=== PATIENT | female | born 1945 | race Caucasian/White ===

== ENCOUNTER 2017-05-20 23:34 | Emergency (ER) | payer MEDICARE, OTHER ==
[~2017-05-20] VITALS: Ht 154.9 cm; Wt 59.0 kg
[~2017-05-20 23:34] MED LIST: AMIT10 PO; AMITIZA SC; Amitiza24 MCG SC; CELE100; CETI5 PO; CITA20 PO; CYCL10 PO; DIAZ5 PO; ESZO2 PO; Effexor Xr150 MG PO; Enablex15 MG PO; FLUSAL5005 INH; FOLI1 PO; FURO40 PO; Flonase 0.05% N16 GM; HYDACE10B PO; HYDR1TAB94 PO; LEFL20 PO; LEVSOD100 PO; LIDO5TP TOP; LORA.5 PO; META800 PO; METANX CAPSULE1 EACH PO; METH10 PO; METH5; MONT10T PO; MULVITA; Medi-Meclizine25 MG PO; Norco 5-325 Ta1 EACH PO; OXYACE5T PO; POTCHL20ER PO; PREDNISONE; PROACE100
[2017-05-21 00:25] LABS: BASOPHILS ABSOLUTE AUTO 0.05 K/mm3 (0.00-0.23); BASOPHILS PERCENT AUTO 1 % (0-2); EOSINOPHILS ABSOLUTE AUTO 0.16 K/mm3 (0.00-0.68); EOSINOPHILS PERCENT AUTO 2 % (0-6); Hematocrit 40.5 % (33.0-51.0); Hemoglobin 13.2 g/dL (11.5-16.0); IMMATURE GRAN ABSOLUTE AUTO 0.01 K/mm3 (0.00-0.10); IMMATURE GRAN PERCENT AUTO 0 % (0-1); LYMPHOCYTES ABSOLUTE AUTO 2.06 K/mm3 (0.84-5.20); LYMPHOCYTES PERCENT AUTO 29 % (21-46); MONOCYTES PERCENT AUTO 8 % (4-13); Mean Corpuscular HGB 31.2 pg (26.0-34.0); Mean Corpuscular HGB Conc 32.6 g/dL (31.5-36.5); Mean Corpuscular Volume 96 fL (80-100); Mean Platelet Volume 9.6 fL (9.1-12.4); NEUTROPHILS ABSOLUTE AUTO 4.28 K/mm3 (1.96-9.15); NEUTROPHILS PERCENT AUTO 60 % (41-73); Platelet Count 166 K/mm3 (150-400); RDW Coefficient Variation 12.3 % (11.7-14.2); RDW Standard Deviation 42.7 fL (35.1-46.3); Red Blood Cell Count 4.23 M/mm3 (3.80-5.20); White Blood Cell Count 7.16 K/mm3 (4.00-11.30)
[2017-05-21 00:45] LABS: Alanine Aminotransfer (ALT/SGP 32 U/L (12-78); Albumin, Blood 4.1 g/dL (3.4-5.0); Albumin/Globulin Ratio 1.3 (0.8-1.8); Alk Phos 77 U/L (50-136); Anion Gap 7 mmol/L (6-16); Aspartate Aminotrans (AST/SGOT 29 U/L (12-37); Bilirubin, Total 0.3 mg/dL (0.1-1.0); Blood Urea Nitrogen 16 mg/dL (8-24); Bun/Creatinine Ratio 21.5 (12.0-20.0); CO2, Blood 25 mmol/L (21-32); Calcium, Blood 8.5 mg/dL (8.5-10.1); Chloride, Blood 101 mmol/L (98-108); Creatinine, Blood 0.74 mg/dL (0.40-1.00); Globulin, Blood 3.1 g/dL (2.2-4.0); Glomerular Filtration Rate >60 (60-); Glucose, Blood 92 mg/dL (70-99); Potassium, Blood 3.8 mmol/L (3.5-5.5); Sodium, Blood 133 mmol/L (136-145); Total Protein, Blood 7.2 g/dL (6.4-8.2)
[2017-11-13] MEDS ORDERED: Keflex500 MG PO (19:20)
[2017-11-13] MEDS ORDERED: Percocet 5-3251 EACH PO (19:20)
[2017-11-13] MEDS ORDERED: Roxicodone5 MG PO (19:31)
== END 2017-05-21 03:55 | disposition home or self-care (01) ==
LOC: ER 23:34
PROVIDERS: Emergency Medicine
DX: S42.034A Nondisplaced fracture of lateral end of right clavicle, initial encounter for closed fracture (principal); S70.01XA Contusion of right hip, initial encounter; Z88.5 Allergy status to narcotic agent; Z88.1 Allergy status to other antibiotic agents; Z88.8 Allergy status to other drugs, medicaments and biological substances; Z79.899 Other long term (current) drug therapy; Z79.52 Long term (current) use of systemic steroids; W18.09XA Striking against other object with subsequent fall, initial encounter
CPT/HCPCS: 36415; 71045; 72192; 73030; 73502; 80053; 85025; 93005; 93010; 96374; 96375; 96376; 99284; J1170; J2405

== ENCOUNTER 2018-10-28 23:11 | Observation (INO) | payer MEDICARE, OTHER ==
[~2018-10-28] VITALS: Ht 157.5 cm; Wt 62.2 kg
[~2018-10-28 23:11] MED LIST changes: +Keflex500 MG PO; +Percocet 5-3251 EACH PO; +Roxicodone5 MG PO
[2018-10-29 00:41] LABS: BASOPHILS ABSOLUTE AUTO 0.06 K/mm3 (0.00-0.23); BASOPHILS PERCENT AUTO 1 % (0-2); EOSINOPHILS ABSOLUTE AUTO 0.08 K/mm3 (0.00-0.68); EOSINOPHILS PERCENT AUTO 2 % (0-6); Hematocrit 37.8 % (33.0-51.0); Hemoglobin 12.3 g/dL (11.5-16.0); IMMATURE GRAN ABSOLUTE AUTO 0.01 K/mm3 (0.00-0.10); IMMATURE GRAN PERCENT AUTO 0 % (0-1); LYMPHOCYTES ABSOLUTE AUTO 1.93 K/mm3 (0.84-5.20); LYMPHOCYTES PERCENT AUTO 36 % (21-46); MONOCYTES PERCENT AUTO 13 % (4-13); Mean Corpuscular HGB 28.7 pg (26.0-34.0); Mean Corpuscular HGB Conc 32.5 g/dL (31.5-36.5); Mean Corpuscular Volume 88 fL (80-100); Mean Platelet Volume 10.5 fL (9.1-12.4); NEUTROPHILS ABSOLUTE AUTO 2.61 K/mm3 (1.96-9.15); NEUTROPHILS PERCENT AUTO 48 % (41-73); Platelet Count 187 K/mm3 (150-400); RDW Coefficient Variation 13.2 % (11.7-14.2); RDW Standard Deviation 42.6 fL (35.1-46.3); Red Blood Cell Count 4.28 M/mm3 (3.80-5.20); White Blood Cell Count 5.39 K/mm3 (4.00-11.30)
[2018-10-29 01:04] LABS: Alanine Aminotransfer (ALT/SGP 31 U/L (12-78); Albumin/Globulin Ratio 1.5 (0.8-1.8); Alk Phos 74 U/L (50-136); Anion Gap 12 mmol/L (6-16); Aspartate Aminotrans (AST/SGOT 44 U/L (12-37); Bilirubin, Total 0.4 mg/dL (0.1-1.0); Blood Urea Nitrogen 15 mg/dL (8-24); CO2, Blood 25 mmol/L (21-32); Calcium, Blood 8.4 mg/dL (8.5-10.1); Chloride, Blood 98 mmol/L (98-108); Creatinine, Blood 0.75 mg/dL (0.40-1.00); Globulin, Blood 2.6 g/dL (2.2-4.0); Glomerular Filtration Rate >60 (60-); Glucose, Blood 103 mg/dL (70-99); Sodium, Blood 135 mmol/L (136-145); Total Protein, Blood 6.6 g/dL (6.4-8.2)
[2018-10-29 01:43] LABS: Creatine Kinase MB 3.1 ng/mL (0.0-3.6); Creatine Kinase MB Index 1.1 (0.0-4.0)
--- NOTE | 2018-10-29 04:12 | NUR ---
0412 ADMIT: PT ARRIVES TO ROOM 208 VIA GOURNEY FROM ER AND TURN PIVOT TRANSFERS TO BED WITH 1 ASSIST AND FWW. PT RIGHT THIGH PROPPPED ON PILLOWS AND ICE PACK APPLIED. PT ORIENTED TO ROOM, PHONE, BED AND CALL SYSTEM AND VERBALIZES UNDERSTANDING. CALL LIGHT PLACED IN REACH.
[2018-10-29 08:31] LABS: BASOPHILS ABSOLUTE AUTO 0.02 K/mm3 (0.00-0.23); BASOPHILS PERCENT AUTO 1 % (0-2); EOSINOPHILS ABSOLUTE AUTO 0.02 K/mm3 (0.00-0.68); EOSINOPHILS PERCENT AUTO 1 % (0-6); Hematocrit 31.2 % (33.0-51.0); Hemoglobin 10.3 g/dL (11.5-16.0); IMMATURE GRAN ABSOLUTE AUTO 0.01 K/mm3 (0.00-0.10); IMMATURE GRAN PERCENT AUTO 0 % (0-1); LYMPHOCYTES ABSOLUTE AUTO 1.13 K/mm3 (0.84-5.20); LYMPHOCYTES PERCENT AUTO 29 % (21-46); MONOCYTES ABSOLUTE AUTO 0.48 K/mm3 (0.16-1.47); MONOCYTES PERCENT AUTO 12 % (4-13); Mean Corpuscular HGB 29.5 pg (26.0-34.0); Mean Corpuscular Volume 89 fL (80-100); Mean Platelet Volume 10.7 fL (9.1-12.4); NEUTROPHILS ABSOLUTE AUTO 2.29 K/mm3 (1.96-9.15); NEUTROPHILS PERCENT AUTO 58 % (41-73); Platelet Count 171 K/mm3 (150-400); RDW Coefficient Variation 13.3 % (11.7-14.2); RDW Standard Deviation 43.7 fL (35.1-46.3); Red Blood Cell Count 3.49 M/mm3 (3.80-5.20); White Blood Cell Count 3.95 K/mm3 (4.00-11.30)
[2018-10-29 13:42] LABS: Hemoglobin 8.9 g/dL (11.5-16.0)
--- NOTE | 2018-10-29 14:16 | NUR ---
Patient informed of bed available. arrangment being made. Bella daughter notified.
--- NOTE | 2018-10-29 15:18 | NUR ---
BACKCHARTED FROM 1030 THIS MORNING , PT YELLING OUT IN PAIN AND THEN STARES OFF INTO SPACE MULTIPLE TIMES OVER COURSE OF MORNING. EASILY ROUSABLE TO VOICE DURING THESE STARING EPISODES , VSS. SPOKE TO DR CRUZ ABOUT PAIN REGIMEN AND ABOUT POSSIBLE ABSENCE SEIZURES VS TOO MUCH OPIATES ON BOARD. FREQUENCE OF THESE EPISODES DECREASED THROUGHOUT SHIFT PAIN MEDICATION NOT NEEDED BY PT, SHE IS CLEARING, THOUGH STILL HAVING THESE EPISODES OCCASIONALLY. WCTM
--- NOTE | 2018-10-29 15:24 | NUR ---
SHIFT SUMMARY JOSE TRANSFERRING TO [facility] FOR CONTINUED BLEEDING IN HER R THIGH. PAIN WELL CONTROLLED AT THIS TIME, SHE HASN'T NEEDED ANYTHING FOR PAIN MEDICINE SINCE 10 THIS MORNING. HAVING STARING EPISODES STILL, THOUGH MUCH LESS FREQUENTLY (SEE PREVIOUS NOTE). H&H STILL DROPPING. DUKES STARTED FOR URINARY RETENTION WITH BLADDER SCAN SHOWING 508 ML FOR WHICH SHE WAS UNABLE TO VOID. AO1 WITH GAIT BELT AND WALKER TO [facility]. NPO SINCE 829. NS RUNNING AT 150 AND GOT HER K REPLACED ORALLY AND IV. ALLERGIC TO CONTRAST SO UNABLE TO DO CT ANGIO PLANNED, DR AWARE. RLE PULSES PALPABLE, NO NUMBNESS OR TINGLING. ICE APPLIED TO RLE AND EXTREMITY ELEVATED. THIGH HAS GROWN FROM 48.5CM WHICH I GOT IN REPORT, TO 51CM AT 0800 TO 53CM AT 1500. ROLLED OUT ON STRETCHER BY MEDICAL TRANSPORT TO [facility] ROOM NUMBER [id number] AT 1530. REPORT GIVEN TO JENNIFER AT [phone] AT 1430.
== END 2018-10-29 15:33 | disposition short-term general hospital (02) ==
LOC: ER 23:11 → SURS 23:12
PROVIDERS: Emergency Medicine; Internal Medicine; ADMIT Hospitalist
DX: S70.12XA Contusion of left thigh, initial encounter (principal); T79.6XXA Traumatic ischemia of muscle, initial encounter; M06.9 Rheumatoid arthritis, unspecified; J45.909 Unspecified asthma, uncomplicated; E03.9 Hypothyroidism, unspecified; Z87.891 Personal history of nicotine dependence; Z79.899 Other long term (current) drug therapy; Z79.52 Long term (current) use of systemic steroids; Z88.8 Allergy status to other drugs, medicaments and biological substances; Z88.1 Allergy status to other antibiotic agents; Z88.5 Allergy status to narcotic agent; Z91.09 Other allergy status, other than to drugs and biological substances; Z91.013 Allergy to seafood; W54.1XXA Struck by dog, initial encounter
CPT/HCPCS: 36415; 51701; 51702; 73562-LT; 73562-RT; 73700; 80053; 82550; 82553; 85014; 85018; 85025; 96361; 96365; 96366; 96374; 96375; 96376; 99284-25; A9270; G0378; G0480; J1170; J2405; J3480; J7030

== ENCOUNTER 2018-11-07 12:40 | Emergency (ER) | payer MEDICARE, OTHER ==
[~2018-11-07] VITALS: Ht 157.5 cm; Wt 59.0 kg
[2018-11-07] MEDS ORDERED: AMLO10 PO (12:59)
[2018-11-07] MEDS ORDERED: MELA3 PO (13:00)
[2018-11-07] MEDS ORDERED: OMEP20ER PO (13:03)
[2018-11-07] MEDS ORDERED: B-1100 MG PO (13:04)
[2018-11-07] MEDS ORDERED: XYZAL5 MG PO (13:05)
[2018-11-07] MEDS ORDERED: ZOLP5 PO (13:05)
[2018-11-07] MEDS ORDERED: ALBU3IS INH (13:06)
[2018-11-07] MEDS ORDERED: MAGNESIUM OXID500 MG PO (13:07)
[2018-11-07] MEDS ORDERED: ACET325 PO (13:10)
[2018-11-07] MEDS ORDERED: BENZ100A (13:11)
[2018-11-07] MEDS ORDERED: MIRALAX17 GM PO (13:13)
[2018-11-07] MEDS ORDERED: ACTEMRA200 MG/10 IM (13:15)
[2018-11-07 13:27] LABS: BASOPHILS ABSOLUTE AUTO 0.04 K/mm3 (0.00-0.23); BASOPHILS PERCENT AUTO 0 % (0-2); EOSINOPHILS ABSOLUTE AUTO 0.07 K/mm3 (0.00-0.68); EOSINOPHILS PERCENT AUTO 1 % (0-6); Hematocrit 33.4 % (33.0-51.0); Hemoglobin 10.7 g/dL (11.5-16.0); IMMATURE GRAN ABSOLUTE AUTO 0.05 K/mm3 (0.00-0.10); IMMATURE GRAN PERCENT AUTO 0 % (0-1); LYMPHOCYTES ABSOLUTE AUTO 0.74 K/mm3 (0.84-5.20); LYMPHOCYTES PERCENT AUTO 5 % (21-46); MONOCYTES ABSOLUTE AUTO 1.14 K/mm3 (0.16-1.47); MONOCYTES PERCENT AUTO 8 % (4-13); Mean Corpuscular HGB 31.3 pg (26.0-34.0); NEUTROPHILS ABSOLUTE AUTO 12.23 K/mm3 (1.96-9.15); NEUTROPHILS PERCENT AUTO 86 % (41-73); Platelet Count 241 K/mm3 (150-400); RDW Coefficient Variation 18.9 % (11.7-14.2); RDW Standard Deviation 66.8 fL (35.1-46.3); Red Blood Cell Count 3.42 M/mm3 (3.80-5.20); White Blood Cell Count 14.27 K/mm3 (4.00-11.30)
[2018-11-07 13:40] LABS: Alanine Aminotransfer (ALT/SGP 33 U/L (12-78); Albumin, Blood 3.3 g/dL (3.4-5.0); Albumin/Globulin Ratio 1.3 (0.8-1.8); Alk Phos 81 U/L (50-136); Anion Gap 6 mmol/L (6-16); Aspartate Aminotrans (AST/SGOT 29 U/L (12-37); Bilirubin, Total 0.8 mg/dL (0.1-1.0); Blood Urea Nitrogen 18 mg/dL (8-24); CO2, Blood 30 mmol/L (21-32); Calcium, Blood 8.7 mg/dL (8.5-10.1); Chloride, Blood 103 mmol/L (98-108); Creatinine, Blood 0.78 mg/dL (0.40-1.00); Globulin, Blood 2.5 g/dL (2.2-4.0); Glomerular Filtration Rate >60 (60-); Glucose, Blood 88 mg/dL (70-99); Mean Corpuscular Volume 98 fL (80-100); Potassium, Blood 3.9 mmol/L (3.5-5.5); Sodium, Blood 139 mmol/L (136-145); Total Protein, Blood 5.8 g/dL (6.4-8.2)
[2018-11-07] MEDS ORDERED: CEPH500 PO (14:29)
== END 2018-11-07 16:10 | disposition home or self-care (01) ==
LOC: ER 12:40
PROVIDERS: Emergency Medicine
DX: L03.115 Cellulitis of right lower limb (principal); Z88.8 Allergy status to other drugs, medicaments and biological substances; Z88.1 Allergy status to other antibiotic agents; Z91.041 Radiographic dye allergy status; Z88.5 Allergy status to narcotic agent; Z91.013 Allergy to seafood; Z79.899 Other long term (current) drug therapy; Z79.891 Long term (current) use of opiate analgesic
CPT/HCPCS: 36415; 80053; 85025; 96365; 96375; 99283-25; J0690; J2405; J3010

== ENCOUNTER 2018-11-08 19:30 | Emergency (ER) | payer MEDICARE, OTHER ==
[~2018-11-08] VITALS: Ht 167.6 cm; Wt 63.5 kg
[~2018-11-08 19:30] MED LIST changes: +ACET325 PO; +ACTEMRA200 MG/10 IM; +ALBU3IS INH; +AMLO10 PO; +B-1100 MG PO; +BENZ100A; +CEPH500 PO; +MAGNESIUM OXID500 MG PO; +MELA3 PO; +MIRALAX17 GM PO; +OMEP20ER PO; +XYZAL5 MG PO; +ZOLP5 PO
== END 2018-11-08 21:53 | disposition home or self-care (01) ==
LOC: ER 19:30
DX: M79.81 Nontraumatic hematoma of soft tissue (principal); M06.9 Rheumatoid arthritis, unspecified; Z88.8 Allergy status to other drugs, medicaments and biological substances; Z88.1 Allergy status to other antibiotic agents; Z88.5 Allergy status to narcotic agent; Z91.013 Allergy to seafood; Z79.899 Other long term (current) drug therapy; Z79.891 Long term (current) use of opiate analgesic
CPT/HCPCS: 99283

== ENCOUNTER 2019-01-24 17:21 | Emergency (ER) | payer MEDICARE, OTHER ==
[~2019-01-24] VITALS: Ht 157.5 cm; Wt 59.0 kg
[~2019-01-24 17:21] MED LIST changes: +Amitiza24 MCG PO; -Amitiza24 MCG SC
[2019-01-24] MEDS ORDERED: HYDR1TAB94 PO (18:21)
[2019-01-24] MEDS ORDERED: CRUTCH2 XX (18:32)
[2019-02-01] MEDS ORDERED: LIDO700A20 TOP (16:08)
[2019-02-01] MEDS ORDERED: FURO40 PO (16:08)
[2019-02-01] MEDS ORDERED: Enablex15 MG PO (16:08)
[2019-02-01] MEDS ORDERED: VENL150ER PO (16:10)
[2019-02-01] MEDS ORDERED: COMBIVENT RESPIM4 GM INH (16:11)
[2019-02-01] MEDS ORDERED: Reclast 55 MG/100 M IV (16:11)
[2019-02-01] MEDS ORDERED: Prednisone10 MG (16:12)
[2019-02-01] MEDS ORDERED: Voltaren100 GM (16:12)
== END 2019-01-24 20:04 | disposition home or self-care (01) ==
LOC: ER 17:21
DX: S82.855A Nondisplaced trimalleolar fracture of left lower leg, initial encounter for closed fracture (principal); J45.909 Unspecified asthma, uncomplicated; E03.9 Hypothyroidism, unspecified; Z88.8 Allergy status to other drugs, medicaments and biological substances; Z91.013 Allergy to seafood; Z88.5 Allergy status to narcotic agent; Z88.1 Allergy status to other antibiotic agents; Z79.899 Other long term (current) drug therapy; Z79.891 Long term (current) use of opiate analgesic; W01.10XA Fall on same level from slipping, tripping and stumbling with subsequent striking against unspecified object, initial encounter
CPT/HCPCS: 29515; 73590; 73610; 73630; 96372-59; 99283-25; A9270; A9270-GY; J2270

== ENCOUNTER 2019-02-02 10:54 | Day surgery (SDC) | payer MEDICARE, OTHER ==
[~2019-02-02] VITALS: Ht 157.5 cm; Wt 59.0 kg
[~2019-02-02 10:54] MED LIST changes: +COMBIVENT RESPIM4 GM INH; +CRUTCH2 XX; +LIDO700A20 TOP; +Prednisone10 MG; +Reclast 55 MG/100 M IV; +VENL150ER PO; +Voltaren100 GM
--- NOTE | 2019-02-02 16:13 | NUR ---
INTO STEP VIA BED. PT REPORTS 10/10 LEFT LOWER EXTREMITY PAIN.CESAR WRAP AND SPLINT IN PLACE TO LEFT LOWER EXTREMITY. CIRC CHECK GOOD. C&DB ENCOURAGED-SATS 92-96% ON RA. PT GRIMACING AND MOANING.SEE FLOWSHEET FOR FREQUENT VS.
--- NOTE | 2019-02-02 17:40 | NUR ---
ASSISTED PT TO BSC WITH MODERATE ASSIST. NWB TO LEFT LOWER EXTREMITY. PT TOLERATED WELL PT ABLE TO VOID 300 CC CLEAR, YELLOW URINE AT THAT TIME. ASSISTED PT WITH GETTING DRESSED-TOLERATED WELL. DESPITE THE FACT THAT PT REPORTS CONTINUED 8/10 LEFT LOWER EXTREMITY PAIN, SHE HAS TOLERATED CRACKERS AND 400 CC NICKI MIST WITHOUT DIFFICULTY AND SHE FEELS THAT SHE IS READY TO GO OVER DISCHARGE INSTRUCTIONS. REVIEWED DISCHARGE INSTRUCTIONS WITH BOTH PT AND HER CLOSE FRIEND AND CARE PROVIDER-STEPHANE. BOTH PT AND HER CAREPROVIDER VERBALIZE AND DEMONSTRATE UNDERSTANDING. DISCHARGE VIA WHEELCHAIR-PT BELONGINGS AND DISCHARGE INSTRUCTIONS ON HAND.
== END 2019-02-02 17:40 | disposition home or self-care (01) ==
LOC: ORSCMMR 10:54
PROVIDERS: Orthopaedic Surgery
PROC: 0QSK04Z Reposition Left Fibula with Internal Fixation Device, Open Approach (ICD-10-PCS; principal; 2019-02-02 12:30)
PROC: 0QSH04Z Reposition Left Tibia with Internal Fixation Device, Open Approach (ICD-10-PCS; principal; 2019-02-02 12:30)
DX: S82.852A Displaced trimalleolar fracture of left lower leg, initial encounter for closed fracture (principal); I10 Essential (primary) hypertension; G47.33 Obstructive sleep apnea (adult) (pediatric); E03.9 Hypothyroidism, unspecified; J45.909 Unspecified asthma, uncomplicated; Z79.899 Other long term (current) drug therapy
CPT/HCPCS: 36415; 84132; C1713; C1769; J0690; J1170; J2270; J2405; J2704; J3010; J3370; J7120

== ENCOUNTER 2020-01-28 01:16 | Emergency (ER) | payer MEDICARE, OTHER ==
[~2020-01-28] VITALS: Ht 157.5 cm; Wt 58.5 kg
[~2020-01-28 01:16] MED LIST changes: +FURO20 PO
[2020-01-28 03:30] LABS: BASOPHILS ABSOLUTE AUTO 0.05 K/mm3 (0.00-0.23); BASOPHILS PERCENT AUTO 1 % (0-2); EOSINOPHILS PERCENT AUTO 2 % (0-6); Hematocrit 34.8 % (33.0-51.0); IMMATURE GRAN ABSOLUTE AUTO 0.02 K/mm3 (0.00-0.10); IMMATURE GRAN PERCENT AUTO 0 % (0-1); LYMPHOCYTES ABSOLUTE AUTO 1.81 K/mm3 (0.84-5.20); LYMPHOCYTES PERCENT AUTO 30 % (21-46); MONOCYTES ABSOLUTE AUTO 0.56 K/mm3 (0.16-1.47); MONOCYTES PERCENT AUTO 9 % (4-13); Mean Corpuscular HGB 21.9 pg (26.0-34.0); Mean Corpuscular HGB Conc 28.7 g/dL (31.5-36.5); Mean Corpuscular Volume 76 fL (80-100); Mean Platelet Volume 9.7 fL (9.1-12.4); NEUTROPHILS ABSOLUTE AUTO 3.58 K/mm3 (1.96-9.15); NEUTROPHILS PERCENT AUTO 59 % (41-73); Platelet Count 244 K/mm3 (150-400); RDW Coefficient Variation 20.5 % (11.7-14.2); RDW Standard Deviation 56.6 fL (35.1-46.3); Red Blood Cell Count 4.56 M/mm3 (3.80-5.20); White Blood Cell Count 6.12 K/mm3 (4.00-11.30)
[2020-01-28 03:52] LABS: Albumin, Blood 3.7 g/dL (3.4-5.0); Albumin/Globulin Ratio 1.4 (0.8-1.8); Bilirubin, Total 0.3 mg/dL (0.1-1.0); Bun/Creatinine Ratio 15.3 (12.0-20.0); Calcium, Blood 7.3 mg/dL (8.5-10.1); Creatinine, Blood 1.24 mg/dL (0.40-1.00); Globulin, Blood 2.6 g/dL (2.2-4.0); Potassium, Blood 3.2 mmol/L (3.5-5.5); Total Protein, Blood 6.3 g/dL (6.4-8.2)
[2020-01-28] MEDS ORDERED: LIDO700A20 TOP (04:04)
== END 2020-01-28 04:32 | disposition home or self-care (01) ==
LOC: ER 01:16
PROVIDERS: Emergency Medicine
DX: S22.32XA Fracture of one rib, left side, initial encounter for closed fracture (principal); Z91.013 Allergy to seafood; Z91.041 Radiographic dye allergy status; Z88.5 Allergy status to narcotic agent; Z79.899 Other long term (current) drug therapy; W10.9XXA Fall (on) (from) unspecified stairs and steps, initial encounter
CPT/HCPCS: 70450; 71250; 72125; 74176; 80053; 83690; 85025; 96374; 96375; 99284-25; A9270; J2270; J2405

== ENCOUNTER → 2020-11-01 | Outpatient (CLI) | payer MEDICARE, OTHER ==
[2020-11-01 19:46] LABS: BASOPHILS ABSOLUTE AUTO 0.03 K/mm3 (0.00-0.23); BASOPHILS PERCENT AUTO 1 % (0-2); EOSINOPHILS ABSOLUTE AUTO 0.08 K/mm3 (0.00-0.68); EOSINOPHILS PERCENT AUTO 3 % (0-6); Hematocrit 40.3 % (33.0-51.0); Hemoglobin 13.6 g/dL (11.5-16.0); IMMATURE GRAN PERCENT AUTO 0 % (0-1); LYMPHOCYTES ABSOLUTE AUTO 1.28 K/mm3 (0.84-5.20); LYMPHOCYTES PERCENT AUTO 40 % (21-46); MONOCYTES ABSOLUTE AUTO 0.33 K/mm3 (0.16-1.47); MONOCYTES PERCENT AUTO 10 % (4-13); Mean Corpuscular HGB 31.7 pg (26.0-34.0); Mean Corpuscular HGB Conc 33.7 g/dL (31.5-36.5); Mean Corpuscular Volume 94 fL (80-100); Mean Platelet Volume 11.4 fL (9.1-12.4); NEUTROPHILS ABSOLUTE AUTO 1.47 K/mm3 (1.96-9.15); NEUTROPHILS PERCENT AUTO 46 % (41-73); Platelet Count 160 K/mm3 (150-400); RDW Coefficient Variation 11.6 % (11.7-14.2); RDW Standard Deviation 39.9 fL (35.1-46.3); Red Blood Cell Count 4.29 M/mm3 (3.80-5.20); White Blood Cell Count 3.19 K/mm3 (4.00-11.30)
[2020-11-01 20:02] LABS: Alanine Aminotransfer (ALT/SGP 29 U/L (12-78); Albumin, Blood 4.2 g/dL (3.4-5.0); Albumin/Globulin Ratio 1.6 (0.8-1.8); Alk Phos 56 U/L (50-136); Anion Gap 4 mmol/L (6-16); Aspartate Aminotrans (AST/SGOT 18 U/L (12-37); Bilirubin, Total 0.8 mg/dL (0.1-1.0); Blood Urea Nitrogen 26 mg/dL (8-24); Bun/Creatinine Ratio 29.1 (12.0-20.0); CO2, Blood 31 mmol/L (21-32); Chloride, Blood 103 mmol/L (98-108); Creatinine, Blood 0.89 mg/dL (0.40-1.00); Globulin, Blood 2.7 g/dL (2.2-4.0); Glomerular Filtration Rate >60 (60-); Glucose, Blood 99 mg/dL (70-99); Potassium, Blood 4.1 mmol/L (3.5-5.5); Sodium, Blood 138 mmol/L (136-145); Total Protein, Blood 6.9 g/dL (6.4-8.2)
[2020-11-01 20:05] LABS: Thyroid Stimulating Hormone 0.006 uIU/mL (0.360-4.800)
== END | disposition home or self-care (01) ==
LOC: LAB 17:49 → LAB SHORT 17:49
PROVIDERS: Family Medicine
DX: E03.9 Hypothyroidism, unspecified (principal); I10 Essential (primary) hypertension
CPT/HCPCS: 80053; 84443; 85025

== ENCOUNTER 2021-03-02 14:24 | Emergency (ER) | payer MEDICARE, OTHER ==
[~2021-03-02] VITALS: Ht 157.5 cm; Wt 63.5 kg
[2021-03-02 16:03] LABS: BASOPHILS ABSOLUTE AUTO 0.03 K/mm3 (0.00-0.23); BASOPHILS PERCENT AUTO 1 % (0-2); EOSINOPHILS ABSOLUTE AUTO 0.16 K/mm3 (0.00-0.68); EOSINOPHILS PERCENT AUTO 5 % (0-6); Hematocrit 42.3 % (33.0-51.0); Hemoglobin 14.4 g/dL (11.5-16.0); IMMATURE GRAN ABSOLUTE AUTO 0.01 K/mm3 (0.00-0.10); IMMATURE GRAN PERCENT AUTO 0 % (0-1); LYMPHOCYTES ABSOLUTE AUTO 0.78 K/mm3 (0.84-5.20); LYMPHOCYTES PERCENT AUTO 24 % (21-46); MONOCYTES ABSOLUTE AUTO 0.45 K/mm3 (0.16-1.47); MONOCYTES PERCENT AUTO 14 % (4-13); Mean Corpuscular Volume 97 fL (80-100); Mean Platelet Volume 10.4 fL (9.1-12.4); NEUTROPHILS ABSOLUTE AUTO 1.79 K/mm3 (1.96-9.15); NEUTROPHILS PERCENT AUTO 56 % (41-73); Platelet Count 148 K/mm3 (150-400); RDW Coefficient Variation 11.9 % (11.7-14.2); RDW Standard Deviation 42.6 fL (35.1-46.3); Red Blood Cell Count 4.36 M/mm3 (3.80-5.20); White Blood Cell Count 3.22 K/mm3 (4.00-11.30)
[2021-03-02 16:33] LABS: Alanine Aminotransfer (ALT/SGP 38 U/L (12-78); Albumin, Blood 4.1 g/dL (3.4-5.0); Albumin/Globulin Ratio 1.4 (0.8-1.8); Alk Phos 66 U/L (50-136); Anion Gap 5 mmol/L (6-16); Aspartate Aminotrans (AST/SGOT 31 U/L (12-37); Bilirubin, Total 0.7 mg/dL (0.1-1.0); Blood Urea Nitrogen 16 mg/dL (8-24); Bun/Creatinine Ratio 18.3 (12.0-20.0); CO2, Blood 28 mmol/L (21-32); Calcium, Blood 8.7 mg/dL (8.5-10.1); Chloride, Blood 106 mmol/L (98-108); Creatinine, Blood 0.87 mg/dL (0.40-1.00); Globulin, Blood 2.9 g/dL (2.2-4.0); Glomerular Filtration Rate >60 (60-); Glucose, Blood 97 mg/dL (70-99); Potassium, Blood 3.8 mmol/L (3.5-5.5); Sodium, Blood 139 mmol/L (136-145); Troponin I <0.015 ng/mL (0.000-0.040)
== END 2021-03-02 17:19 | disposition home or self-care (01) ==
LOC: ER 14:24
PROVIDERS: Physician Assistant
DX: R60.0 Localized edema (principal); E03.9 Hypothyroidism, unspecified; J45.909 Unspecified asthma, uncomplicated; Z88.5 Allergy status to narcotic agent; Z91.048 Other nonmedicinal substance allergy status; Z91.013 Allergy to seafood; Z88.1 Allergy status to other antibiotic agents; Z79.899 Other long term (current) drug therapy
CPT/HCPCS: 36415; 71046; 80053; 83735; 83880; 84484; 85025; 93005; 93010; 93971

== ENCOUNTER → 2021-10-19 | Outpatient (CLI) | payer MEDICARE, OTHER ==
[2021-10-19 19:18] LABS: BASOPHILS ABSOLUTE AUTO 0.03 K/mm3 (0.00-0.23); BASOPHILS PERCENT AUTO 1 % (0-2); EOSINOPHILS ABSOLUTE AUTO 0.08 K/mm3 (0.00-0.68); EOSINOPHILS PERCENT AUTO 2 % (0-6); Hematocrit 39.9 % (33.0-51.0); Hemoglobin 13.4 g/dL (11.5-16.0); IMMATURE GRAN ABSOLUTE AUTO 0.01 K/mm3 (0.00-0.10); IMMATURE GRAN PERCENT AUTO 0 % (0-1); LYMPHOCYTES ABSOLUTE AUTO 0.58 K/mm3 (0.84-5.20); LYMPHOCYTES PERCENT AUTO 12 % (21-46); MONOCYTES ABSOLUTE AUTO 0.31 K/mm3 (0.16-1.47); MONOCYTES PERCENT AUTO 6 % (4-13); Mean Corpuscular HGB 31.2 pg (26.0-34.0); Mean Corpuscular HGB Conc 33.6 g/dL (31.5-36.5); Mean Corpuscular Volume 93 fL (80-100); Mean Platelet Volume 10.9 fL (9.1-12.4); NEUTROPHILS PERCENT AUTO 80 % (41-73); Platelet Count 153 K/mm3 (150-400); RDW Coefficient Variation 12.2 % (11.7-14.2); RDW Standard Deviation 41.9 fL (35.1-46.3); White Blood Cell Count 4.91 K/mm3 (4.00-11.30)
[2021-10-19 20:03] LABS: Albumin, Blood 4.5 g/dL (3.4-5.0); Albumin/Globulin Ratio 1.7 (0.8-1.8); Bilirubin, Total 0.5 mg/dL (0.1-1.0); Bun/Creatinine Ratio 22.1 (12.0-20.0); Calcium, Blood 9.3 mg/dL (8.5-10.1); Creatinine, Blood 1.04 mg/dL (0.40-1.00); Globulin, Blood 2.7 g/dL (2.2-4.0); Potassium, Blood 3.4 mmol/L (3.5-5.5); Thyroid Stimulating Hormone 4.1 uIU/mL (0.360-4.800); Total Protein, Blood 7.2 g/dL (6.4-8.2)
== END | disposition home or self-care (01) ==
LOC: LAB SHORT 17:20 → LAB 17:20
PROVIDERS: Family Medicine
DX: E03.9 Hypothyroidism, unspecified (principal); Z79.899 Other long term (current) drug therapy
CPT/HCPCS: 80053; 84443; 85025

== ENCOUNTER 2022-02-15 03:25 | Inpatient (IN) | payer MEDICARE, OTHER ==
[~2022-02-15] VITALS: Ht 157.5 cm; Wt 63.5 kg
[2022-02-15 04:03] LABS: BASOPHILS ABSOLUTE AUTO 0.05 K/mm3 (0.00-0.23); BASOPHILS PERCENT AUTO 1 % (0-2); EOSINOPHILS ABSOLUTE AUTO 0.22 K/mm3 (0.00-0.68); EOSINOPHILS PERCENT AUTO 2 % (0-6); Hematocrit 41.1 % (33.0-51.0); Hemoglobin 14.3 g/dL (11.5-16.0); IMMATURE GRAN ABSOLUTE AUTO 0.02 K/mm3 (0.00-0.10); IMMATURE GRAN PERCENT AUTO 0 % (0-1); LYMPHOCYTES ABSOLUTE AUTO 2.41 K/mm3 (0.84-5.20); LYMPHOCYTES PERCENT AUTO 25 % (21-46); MONOCYTES ABSOLUTE AUTO 0.79 K/mm3 (0.16-1.47); MONOCYTES PERCENT AUTO 8 % (4-13); Mean Corpuscular HGB 31.2 pg (26.0-34.0); Mean Corpuscular HGB Conc 34.8 g/dL (31.5-36.5); Mean Corpuscular Volume 90 fL (80-100); Mean Platelet Volume 10.3 fL (9.1-12.4); NEUTROPHILS ABSOLUTE AUTO 6.19 K/mm3 (1.96-9.15); NEUTROPHILS PERCENT AUTO 64 % (41-73); Platelet Count 189 K/mm3 (150-400); RDW Standard Deviation 39.4 fL (35.1-46.3); Red Blood Cell Count 4.59 M/mm3 (3.80-5.20); White Blood Cell Count 9.68 K/mm3 (4.00-11.30)
[2022-02-15 04:24] LABS: Albumin, Blood 4.6 g/dL (3.4-5.0); Albumin/Globulin Ratio 1.4 (0.8-1.8); Bilirubin, Total 0.7 mg/dL (0.1-1.0); Bun/Creatinine Ratio 12.2 (12.0-20.0); Calcium, Blood 10.5 mg/dL (8.5-10.1); Creatinine, Blood 1.48 mg/dL (0.40-1.00); Globulin, Blood 3.3 g/dL (2.2-4.0); Potassium, Blood 3.4 mmol/L (3.5-5.5); Total Protein, Blood 7.9 g/dL (6.4-8.2)
[2022-02-15 06:57] LABS: Source, Urine Straight Cath
[2022-02-15 07:17] LABS: Appearance, Urine Clear (Clear); Bilirubin, Urine Neg (Neg); Blood, Urine Neg (Neg); Color, Urine Pale Yellow (P-Yellow); Glucose Qualitative, Urine Neg (Neg); Ketones, Urine Neg (Neg); Leukocyte Esterase, Urine Neg (Neg); Nitrite, Urine Neg (Neg); Protein, Urine Neg (Neg); Urobilinogen, Urine NORM (Normal)
[2022-02-15 07:43] LABS: U Amphetamine Screen Not Detected; U Barbituate Screen Not Detected; U Benzodiazapine Screen Not Detected; U Buprenorphine Screen Not Detected; U Cannabinoids Screen Not Detected; U Cocaine Screen Not Detected; U Methadone Screen DETECTED; U Methamphetamine Screen Not Detected; U Opiates Screen Not Detected; U Oxycodone Screen Not Detected; U Phencyclidine Screen Not Detected; U Propoxyphene Screen Not Detected
[2022-02-15 08:45] LABS: Influenza A, PCR NEGATIVE (NEGATIVE); Influenza B, PCR NEGATIVE (NEGATIVE); Resp Syncytial Virus, PCR NEGATIVE (NEGATIVE); SARS-Cov-2 (COVID-19) PCR, MMC NEGATIVE (NEGATIVE)
[2022-02-15 22:13] LABS: Appearance, Urine Clear (Clear); Bilirubin, Urine Neg (Neg); Blood, Urine 1+ (Neg); Color, Urine Yellow (P-Yellow); Glucose Qualitative, Urine Neg (Neg); Ketones, Urine Neg (Neg); Leukocyte Esterase, Urine 1+ (Neg); Nitrite, Urine Neg (Neg); Protein, Urine Neg (Neg); Specific Gravity, Urine 1.015 (1.003-1.022); Urobilinogen, Urine NORM (Normal)
[2022-02-15 22:35] LABS: Bacteria Many /hpf; Red Blood Cells, Urine 0-2 /hpf (0-2); Squamous Epithelial Cells Few /hpf (Few)
[2022-02-16 01:41] LABS: Free Thyroxine 0.84 ng/dL (0.70-1.60); Thyroid Stimulating Hormone 0.836 uIU/mL (0.360-4.800)
[2022-02-16 05:49] LABS: BASOPHILS ABSOLUTE AUTO 0.03 K/mm3 (0.00-0.23); BASOPHILS PERCENT AUTO 1 % (0-2); EOSINOPHILS ABSOLUTE AUTO 0.16 K/mm3 (0.00-0.68); EOSINOPHILS PERCENT AUTO 3 % (0-6); Hematocrit 35.7 % (33.0-51.0); Hemoglobin 12.1 g/dL (11.5-16.0); IMMATURE GRAN ABSOLUTE AUTO 0.01 K/mm3 (0.00-0.10); IMMATURE GRAN PERCENT AUTO 0 % (0-1); LYMPHOCYTES ABSOLUTE AUTO 1.63 K/mm3 (0.84-5.20); LYMPHOCYTES PERCENT AUTO 26 % (21-46); MONOCYTES ABSOLUTE AUTO 0.51 K/mm3 (0.16-1.47); MONOCYTES PERCENT AUTO 8 % (4-13); Mean Corpuscular HGB 31.1 pg (26.0-34.0); Mean Corpuscular HGB Conc 33.9 g/dL (31.5-36.5); Mean Corpuscular Volume 92 fL (80-100); Mean Platelet Volume 10.4 fL (9.1-12.4); NEUTROPHILS PERCENT AUTO 63 % (41-73); Platelet Count 134 K/mm3 (150-400); RDW Coefficient Variation 12.6 % (11.7-14.2); RDW Standard Deviation 42.9 fL (35.1-46.3); Red Blood Cell Count 3.89 M/mm3 (3.80-5.20); White Blood Cell Count 6.34 K/mm3 (4.00-11.30)
[2022-02-16 06:17] LABS: Albumin, Blood 3.3 g/dL (3.4-5.0); Albumin/Globulin Ratio 1.2 (0.8-1.8); Bilirubin, Total 0.8 mg/dL (0.1-1.0); Bun/Creatinine Ratio 10.1 (12.0-20.0); Creatinine, Blood 0.99 mg/dL (0.40-1.00); Globulin, Blood 2.7 g/dL (2.2-4.0); Potassium, Blood 3.2 mmol/L (3.5-5.5)
[2022-02-16 06:45] LABS: Calcium, Blood 8.5 mg/dL (8.5-10.1)
--- NOTE | 2022-02-16 07:38 | NUR ---
ELISEO ARRIVED TO THE FLOOR A&OX4 COOPERATIVE WITH CARE. NO COMPLAINTS OF PAIN, SHE IS JUST SHAKEN OVER THE EVENTS THAT LED UP TO HER CURRENT HOSPITALIZATION. SHE IS OOB WITH ONE ASSIST, A GAIT BELT AND A FWW. SEVERAL MEDICATIONS WERE NOT MENTIONED, OR NO LONGER TAKEN. PLEASE SEE MED RECONCILLIAMTION FORM. DAUGHTER BROWN IS STAYING WITH HER MOTHER. NO COMPLAINTS OF PAIN OR DISCOMFORT OVERNIGHT
--- NOTE | 2022-02-16 09:58 | NUR ---
DR GRANADOS ROUNDED, DAUGHTER AT BEDSIDE, PT IN WORKING WITH PATIENT NOW, STAND BY ASSIST, DR GRANADOS TO ENTER NEW ORDERS, WCTM
--- NOTE | 2022-02-16 13:22 | NUR ---
BOTH DAUGHTERS IN ROOM WITH PATIENT, PATIENT'S DOG IS VISITING
--- NOTE | 2022-02-16 18:32 | NUR ---
ALERT AND ORIENTED, DAUGHTER TAHIR AT BEDSIDE, HELPFUL WITH CARE, PATIENT MAKES NEEDS KNOWN, IMPROVED APPETITE, DENIES NV, D5W1/2NS AND KCL INFUSING TO LEFT HAND, DENIES TENDERNESS OR PAIN AT IV PRESENTLY. VOIDING ORANGE URINE DUE TO PYRIDIUM, POSSIBLE DISCHARGE TOMORROW, WILL RELAY TO PM RN
--- NOTE | 2022-02-17 04:00 | NUR ---
ELISEO AND HER DAUGHTER TAHIR HAD A QUIET EVENING LAST NIGHT. HER ROUTINE EVENING DOSE OF 10MG METHADONE WAS ORDERED AND GIVEN AT HS WELL AN ADDITIONAL DOSE OF PYRIDIUM FOR DYSURIA. ELISEO IS OOB WITH A MINIMAL SBA TO THE BSC.
--- NOTE | 2022-02-17 04:12 | NUR ---
GOOD NIGHT FOR ELISEO. SHE SLEPT MOST OF THE NIGHT, WAKING ONLY TO CALL TO GET OOB TO USE THE COMMODE AROUND MIDNIGHT. URINE IS CLEAR, YELLOW AND ODORLESS. VOID WAS 800 MLS.
[2022-02-17 06:28] LABS: BASOPHILS ABSOLUTE AUTO 0.04 K/mm3 (0.00-0.23); BASOPHILS PERCENT AUTO 1 % (0-2); EOSINOPHILS ABSOLUTE AUTO 0.16 K/mm3 (0.00-0.68); EOSINOPHILS PERCENT AUTO 3 % (0-6); Hematocrit 40.1 % (33.0-51.0); Hemoglobin 13.8 g/dL (11.5-16.0); IMMATURE GRAN ABSOLUTE AUTO 0.01 K/mm3 (0.00-0.10); IMMATURE GRAN PERCENT AUTO 0 % (0-1); LYMPHOCYTES ABSOLUTE AUTO 1.22 K/mm3 (0.84-5.20); LYMPHOCYTES PERCENT AUTO 24 % (21-46); MONOCYTES PERCENT AUTO 8 % (4-13); Mean Corpuscular HGB 31.4 pg (26.0-34.0); Mean Corpuscular HGB Conc 34.4 g/dL (31.5-36.5); Mean Corpuscular Volume 91 fL (80-100); Mean Platelet Volume 9.9 fL (9.1-12.4); NEUTROPHILS ABSOLUTE AUTO 3.34 K/mm3 (1.96-9.15); NEUTROPHILS PERCENT AUTO 65 % (41-73); Platelet Count 144 K/mm3 (150-400); RDW Coefficient Variation 12.3 % (11.7-14.2); RDW Standard Deviation 41.5 fL (35.1-46.3); Red Blood Cell Count 4.39 M/mm3 (3.80-5.20); White Blood Cell Count 5.17 K/mm3 (4.00-11.30)
[2022-02-17 06:51] LABS: Bun/Creatinine Ratio 6.3 (12.0-20.0); Calcium, Blood 9.4 mg/dL (8.5-10.1); Creatinine, Blood 0.96 mg/dL (0.40-1.00); Potassium, Blood 3.8 mmol/L (3.5-5.5)
--- NOTE | 2022-02-17 10:05 | NUR ---
DR GRANADOS ROUNDED ON PATIENT, PATIENT TO GO HOME TODAY, PATIENT AND DAUGHTER AGREED FOR DISCHARGE HOME
[2022-02-17] MEDS ORDERED: Pyridium100 MG PO (11:24)
[2022-02-17] MEDS ORDERED: CEFD300 PO (11:25)
[2022-02-17] MEDS ORDERED: Diflucan100 MG PO (11:27)
--- NOTE | 2022-02-17 11:45 | NUR ---
patient and 2 daughters stated understand of discharge instructions, denied further questions for discharge instructions or needs
== END 2022-02-17 12:00 | disposition home or self-care (01) | DRG 689 ==
LOC: ER 03:25 → MEDS 16:51 → ERHOLD 16:51 → MEDS 21:36
PROVIDERS: Family Medicine; Student in an Organized Health Care Education/Training Program; ADMIT Internal Medicine
DX: N39.0 Urinary tract infection, site not specified (principal); G92.8 Other toxic encephalopathy; N17.9 Acute kidney failure, unspecified; Z20.822 Contact with and (suspected) exposure to COVID-19; Z23 Encounter for immunization; B96.1 Klebsiella pneumoniae [K. pneumoniae] as the cause of diseases classified elsewhere; M06.9 Rheumatoid arthritis, unspecified; J45.909 Unspecified asthma, uncomplicated; E03.9 Hypothyroidism, unspecified; G89.29 Other chronic pain; E86.0 Dehydration; E87.6 Hypokalemia; Z98.84 Bariatric surgery status; Z98.890 Other specified postprocedural states; Z88.1 Allergy status to other antibiotic agents; Z88.5 Allergy status to narcotic agent; Z88.8 Allergy status to other drugs, medicaments and biological substances; Z91.013 Allergy to seafood; Z79.899 Other long term (current) drug therapy
CPT/HCPCS: 0241U; 36415; 70450; 71045; 80048; 80053; 81001; 81003; 82607; 82746; 84132; 84439; 84443; 85025; 85651; 86141; 87077; 87086; 87186; 90686; 96365; 96366; 96368; 96372-59; 96375; 96376; 97116; 97161; 97530; 99285-25; A9270; G0008; G0480; J0696; J1650; J2060; J3411; J3475; J3480; J7030; J7042; J7050

== ENCOUNTER → 2022-07-02 | Outpatient (CLI) | payer MEDICARE, OTHER ==
[~2022-07-02] MED LIST changes: +CEFD300 PO; +Diflucan100 MG PO; +Pyridium100 MG PO
[2022-07-02 19:54] LABS: BASOPHILS ABSOLUTE AUTO 0.03 K/mm3 (0.00-0.23); BASOPHILS PERCENT AUTO 1 % (0-2); EOSINOPHILS ABSOLUTE AUTO 0.09 K/mm3 (0.00-0.68); EOSINOPHILS PERCENT AUTO 2 % (0-6); Hematocrit 39.7 % (33.0-51.0); Hemoglobin 13.1 g/dL (11.5-16.0); IMMATURE GRAN ABSOLUTE AUTO 0.01 K/mm3 (0.00-0.10); IMMATURE GRAN PERCENT AUTO 0 % (0-1); LYMPHOCYTES ABSOLUTE AUTO 1.41 K/mm3 (0.84-5.20); LYMPHOCYTES PERCENT AUTO 28 % (21-46); MONOCYTES PERCENT AUTO 10 % (4-13); Mean Corpuscular HGB 31.5 pg (26.0-34.0); Mean Corpuscular Volume 95 fL (80-100); Mean Platelet Volume 10.2 fL (9.1-12.4); NEUTROPHILS ABSOLUTE AUTO 2.97 K/mm3 (1.96-9.15); NEUTROPHILS PERCENT AUTO 59 % (41-73); Platelet Count 164 K/mm3 (150-400); RDW Coefficient Variation 12.9 % (11.7-14.2); RDW Standard Deviation 45.1 fL (35.1-46.3); Red Blood Cell Count 4.16 M/mm3 (3.80-5.20); White Blood Cell Count 5.01 K/mm3 (4.00-11.30)
[2022-07-02 20:50] LABS: Thyroid Stimulating Hormone 2.4 uIU/mL (0.360-4.800)
[2022-07-02 20:54] LABS: Albumin/Globulin Ratio 1.5 (0.8-1.8); Bilirubin, Total 0.3 mg/dL (0.1-1.0); Bun/Creatinine Ratio 16.4 (12.0-20.0); Calcium, Blood 8.8 mg/dL (8.5-10.1); Creatinine, Blood 1.22 mg/dL (0.40-1.00); Globulin, Blood 2.7 g/dL (2.2-4.0); Potassium, Blood 3.8 mmol/L (3.5-5.5); Total Protein, Blood 6.7 g/dL (6.4-8.2)
[2022-07-04 15:07] LABS: HIV AB/P24 AG SCREEN Non Reactive (Non Reactive)
== END | disposition home or self-care (01) ==
LOC: LAB SHORT 19:02
PROVIDERS: Family Medicine
DX: Z11.4 Encounter for screening for human immunodeficiency virus [HIV] (principal); Z51.81 Encounter for therapeutic drug level monitoring; E03.9 Hypothyroidism, unspecified; I10 Essential (primary) hypertension; R41.3 Other amnesia; Z79.899 Other long term (current) drug therapy
CPT/HCPCS: 80053; 82607; 82746; 84443; 85025; 86592

== ENCOUNTER → 2023-01-22 | Outpatient (CLI) | payer MEDICARE, OTHER | LOC: LAB 14:40 → LAB SHORT 14:40 | DX: C44.629 Squamous cell carcinoma of skin of left upper limb, including shoulder (principal) | CPT/HCPCS: 88305 ==

== ENCOUNTER 2023-07-06 07:08 | Emergency (ER) | payer MEDICARE, OTHER ==
[~2023-07-06] VITALS: Ht 157.5 cm; Wt 68.0 kg
[2023-07-06] MEDS ORDERED: DESONIDE15 G1 TOP (07:23)
[2023-07-06] MEDS ORDERED: CALTRATE 600 P1 EACH PO (07:23)
[2023-07-06] MEDS ORDERED: METO25ER PO (07:24)
[2023-07-06] MEDS ORDERED: MOVANTIK25 M1 PO (07:24)
[2023-07-06] MEDS ORDERED: ABAT250V (07:24)
[2023-07-06] MEDS ORDERED: MEMA5TAB PO (07:24)
[2023-07-06] MEDS ORDERED: PRED5 PO (07:24)
[2023-07-06] MEDS ORDERED: SPIR25 PO (07:25)
[2023-07-06] MEDS ORDERED: TOLT4 PO (07:25)
[2023-07-06] MEDS ORDERED: TIZA4 PO (07:25)
[2023-07-06] MEDS ORDERED: B-1100 M1 PO (07:25)
[2023-07-06] MEDS ORDERED: SENN187 PO (07:25)
[2023-07-06] MEDS ORDERED: TRAZ50 PO (07:26)
[2023-07-06] MEDS ORDERED: WIXELA 500-501 EAC1 IH (07:26)
[2023-07-06] MEDS ORDERED: TORSE20 PO (07:26)
[2023-07-06 07:27] LABS: BASOPHILS ABSOLUTE AUTO 0.04 K/mm3 (0.00-0.23); BASOPHILS PERCENT AUTO 0 % (0-2); EOSINOPHILS PERCENT AUTO 1 % (0-6); Hematocrit 37.7 % (33.0-51.0); Hemoglobin 12.1 g/dL (11.5-16.0); IMMATURE GRAN ABSOLUTE AUTO 0.03 K/mm3 (0.00-0.10); IMMATURE GRAN PERCENT AUTO 0 % (0-1); LYMPHOCYTES ABSOLUTE AUTO 1.21 K/mm3 (0.84-5.20); LYMPHOCYTES PERCENT AUTO 14 % (21-46); MONOCYTES ABSOLUTE AUTO 0.64 K/mm3 (0.16-1.47); MONOCYTES PERCENT AUTO 7 % (4-13); Mean Corpuscular HGB 29.1 pg (26.0-34.0); Mean Corpuscular HGB Conc 32.1 g/dL (31.5-36.5); Mean Corpuscular Volume 91 fL (80-100); Mean Platelet Volume 9.5 fL (9.1-12.4); NEUTROPHILS ABSOLUTE AUTO 6.93 K/mm3 (1.96-9.15); NEUTROPHILS PERCENT AUTO 78 % (41-73); Platelet Count 233 K/mm3 (150-400); RDW Coefficient Variation 13.5 % (11.7-14.2); RDW Standard Deviation 45.2 fL (35.1-46.3); Red Blood Cell Count 4.16 M/mm3 (3.80-5.20); White Blood Cell Count 8.95 K/mm3 (4.00-11.30)
[2023-07-06 08:03] LABS: Albumin/Globulin Ratio 1.3 (0.8-1.8); Bilirubin, Total 0.4 mg/dL (0.1-1.0); Bun/Creatinine Ratio 21.4 (12.0-20.0); Calcium, Blood 9.6 mg/dL (8.5-10.1); Creatinine, Blood 1.26 mg/dL (0.40-1.00); Free Thyroxine 0.88 ng/dL (0.70-1.60); Magnesium, Blood 2.1 mg/dL (1.6-2.4); Potassium, Blood 3.5 mmol/L (3.5-5.5); Thyroid Stimulating Hormone 5.25 uIU/mL (0.360-4.800); Triiodothyronine, Free 1.35 pg/mL (2.18-3.98)
[2023-07-06 08:07] LABS: Source, Urine Straight Cath
[2023-07-06 08:13] LABS: Appearance, Urine Clear (Clear); Bilirubin, Urine Neg (Neg); Blood, Urine 1+ (Neg); Color, Urine Yellow (P-Yellow); Glucose Qualitative, Urine Neg (Neg); Ketones, Urine Neg (Neg); Leukocyte Esterase, Urine Neg (Neg); Nitrite, Urine Neg (Neg); Protein, Urine Neg (Neg); Specific Gravity, Urine 1.005 (1.003-1.022); Urobilinogen, Urine NORM (Normal)
[2023-07-06] MEDS ORDERED: NS 1,000 ML IV SCH (08:20)
[2023-07-06 08:34] LABS: Bacteria Not Seen /hpf; Red Blood Cells, Urine 0-2 /hpf (0-2); Squamous Epithelial Cells Not Seen /hpf (Few); White Blood Cells, Urine 0-2 /hpf (0-5)
[2023-07-06 09:15] VITALS: BP 136/59
[2023-07-06] MEDS ORDERED: rOPINIRole HCl 1 MG Tab PO ONE (10:35)
[2023-07-06] MEDS ORDERED: Amoxicillin/Clavulanate K 875 MG Tab PO ONE (10:40)
[2023-07-06] MEDS ORDERED: AMOCLA875 PO (10:41)
[2023-07-06] MEDS ORDERED: ROPI1 PO (10:41)
== END 2023-07-06 12:03 | disposition home or self-care (01) ==
LOC: ER 07:08
PROVIDERS: Student in an Organized Health Care Education/Training Program
DX: G25.81 Restless legs syndrome (principal); J18.9 Pneumonia, unspecified organism; J45.909 Unspecified asthma, uncomplicated; E03.9 Hypothyroidism, unspecified; Z88.5 Allergy status to narcotic agent; Z88.1 Allergy status to other antibiotic agents; Z91.013 Allergy to seafood; Z91.041 Radiographic dye allergy status; Z79.899 Other long term (current) drug therapy
CPT/HCPCS: 51702; 51798; 71046; 80053; 81001; 83735; 84439; 84443; 84481; 85025; 99284-25; A9270; J7030; P9612

== ENCOUNTER 2024-03-19 17:00 | Emergency (ER) | payer MEDICARE, OTHER ==
[~2024-03-19] VITALS: Ht 162.6 cm; Wt 63.5 kg
[~2024-03-19 17:00] MED LIST changes: +ABAT250V; +AMOCLA875 PO; +B-1100 M1 PO; +CALTRATE 600 P1 EACH PO; +DESONIDE15 G1 TOP; +MEMA5TAB PO; +METO25ER PO; +MOVANTIK25 M1 PO; +PRED5 PO; +ROPI1 PO; +SENN187 PO; +SPIR25 PO; +TIZA4 PO; +TOLT4 PO; +TORSE20 PO; +TRAZ50 PO; +WIXELA 500-501 EAC1 IH
[2024-03-19 17:55] LABS: Hematocrit 35.5 % (33.0-51.0); Hemoglobin 11.4 g/dL (11.5-16.0); Mean Corpuscular HGB 28.2 pg (26.0-34.0); Mean Corpuscular HGB Conc 32.1 g/dL (31.5-36.5); Mean Corpuscular Volume 88 fL (80-100); Mean Platelet Volume 10.1 fL (9.1-12.4); Platelet Count 191 K/mm3 (150-400); RDW Coefficient Variation 14.6 % (11.7-14.2); RDW Standard Deviation 47.2 fL (35.1-46.3); Red Blood Cell Count 4.04 M/mm3 (3.80-5.20)
[2024-03-19 18:13] LABS: Albumin, Blood 3.1 g/dL (3.4-5.0); Albumin/Globulin Ratio 0.9 (0.8-1.8); Bilirubin, Total 0.3 mg/dL (0.1-1.0); Bun/Creatinine Ratio 14.7 (12.0-20.0); Calcium, Blood 9.3 mg/dL (8.5-10.1); Creatinine, Blood 1.43 mg/dL (0.40-1.00); Globulin, Blood 3.3 g/dL (2.2-4.0); Potassium, Blood 3.5 mmol/L (3.5-5.5); Total Protein, Blood 6.4 g/dL (6.4-8.2)
[2024-03-19 18:18] LABS: BAND PERCENT MAN 36 % (0-8); BASOPHILS ABSOLUTE MAN 0.11 K/mm3 (0.00-0.23); BASOPHILS PERCENT MAN 2 % (0-2); EOSINOPHILS ABSOLUTE MAN 0.05 K/mm3 (0.00-0.68); EOSINOPHILS PERCENT MAN 1 % (0-6); LYMPHOCYTES % ATYPICAL MANUAL 1 % (0-0); LYMPHOCYTES ABSOLUTE MAN 1.71 K/mm3 (0.84-5.20); LYMPHOCYTES PERCENT MAN 29 % (21-46); METAMYELOCYTE ABSOLUTE MAN 0.05 K/mm3 (0.00-0.00); METAMYELOCYTE PERCENT MAN 1 % (0-0); MONOCYTES ABSOLUTE MAN 0.74 K/mm3 (0.16-1.47); MONOCYTES PERCENT MAN 13 % (4-13); NEUTROPHILS ABSOLUTE MAN 3.02 K/mm3 (1.96-9.15); SEG NEUTROPHILS PERCENT MAN 17 % (41-73); TOTAL CELLS COUNTED 100
[2024-03-19] MEDS ORDERED: NS 1,000 ML IV SCH (21:15)
[2024-03-19 22:08] LABS: Source, Urine Clean Catch
[2024-03-19 22:23] LABS: Appearance, Urine Clear (Clear); Bilirubin, Urine Neg (Neg); Blood, Urine Neg (Neg); Color, Urine Yellow (P-Yellow); Glucose Qualitative, Urine Neg (Neg); Ketones, Urine Neg (Neg); Leukocyte Esterase, Urine Neg (Neg); Nitrite, Urine Neg (Neg); Protein, Urine Neg (Neg); Specific Gravity, Urine 1.015 (1.003-1.022); Urobilinogen, Urine NORM (Normal)
[2024-03-19 22:47] LABS: Influenza A, PCR NEGATIVE (NEGATIVE); Influenza B, PCR NEGATIVE (NEGATIVE); Resp Syncytial Virus, PCR NEGATIVE (NEGATIVE); SARS-Cov-2 (COVID-19) PCR, MMC NEGATIVE (NEGATIVE)
[2024-03-19 23:00] VITALS: BP 114/80
== END 2024-03-19 23:08 | disposition home or self-care (01) ==
LOC: ER 17:00
PROVIDERS: Emergency Medicine; Physician Assistant
DX: R53.1 Weakness (principal); J45.909 Unspecified asthma, uncomplicated; E03.9 Hypothyroidism, unspecified; Z79.52 Long term (current) use of systemic steroids; Z79.51 Long term (current) use of inhaled steroids; Z79.899 Other long term (current) drug therapy; Z91.041 Radiographic dye allergy status; Z88.5 Allergy status to narcotic agent; Z88.1 Allergy status to other antibiotic agents; Z91.013 Allergy to seafood
CPT/HCPCS: 0241U; 74176; 80053; 81003; 85025; 93005; 93010; 96360; 99285-25; J7030